=== PATIENT | male | born 1945 | race Caucasian/White ===

== ENCOUNTER 2020-08-11 01:03 | Outpatient (CLI) | payer OTHER, SELFPAY ==
--- NOTE | 2020-08-11 14:05 | DI.US_ITS ---
APPROVED REPORT EXAM: Comprehensive 2D, Doppler, and color-flow Echocardiogram Patient Location: Out-Patient [facility]st Project Manager: Pamela Hua RDCS ([place]) Indications: Ischemic heart disease, CABG Other Information Study Quality: Fair. Technically limited study due to body habitus. Conclusion Left Ventricle : The left ventricle is normal size. Left ventricular systolic function is mildly decr eased. There is normal left ventricular wall thickness. There is global hypokinesis of the left ventr icle. The left ventricular diastolic function is normal. LVEF is 45%. Right Ventricle : Right ventricle is not well visualized. Right ventricular systolic function could n ot be assessed. The RVSP is 19.1mmHg. Atria : Left atrium is mildly dilated. Right atrium is borderline dilated. Mitral Valve : The mitral valve is normal in structure. Mild mitral regurgitation. No evidence of micah ral valve stenosis. Great Vessels : The aortic root is normal in size. The ascending aorta is mildly dilated. Aortic arch is not well visualized. IVC is normal in size and collapses >50% with inspiration. There is no prior study available for comparison. Wall motion Left Ventricle The left ventricle is normal size. Left ventricular systolic function is mildly decreased. There is n ormal left ventricular wall thickness. There is global hypokinesis of the left ventricle. The left ve ntricular diastolic function is normal. There is no ventricular septal defect visualized. LVEF is 45% . Right Ventricle Right ventricle is not well visualized. Right ventricular systolic function could not be assessed. Th e RVSP is 19.1mmHg. Atria Left atrium is mildly dilated. Right atrium is borderline dilated. The interatrial septum is intact w ith no evidence for an atrial septal defect. Aortic Valve The aortic valve is normal in structure. Aortic valve is trileaflet. There is no aortic valvular sten osis. No aortic regurgitation is present. Mitral Valve The mitral valve is normal in structure. No evidence of mitral valve stenosis. Mild mitral regurgitat ion. Tricuspid Valve The tricuspid valve is normal in structure. There is no tricuspid valve stenosis. Trace tricuspid reg urgitation. Pulmonic Valve Pulmonic valve is not well visualized. There is no pulmonic valvular stenosis. Trace pulmonic regurgi tation. Great Vessels The aortic root is normal in size. The ascending aorta is mildly dilated. Aortic arch is not well vis ualized. IVC is normal in size and collapses >50% with inspiration. Pericardium There is no pericardial effusion. 2D Dimensions IVSD d PLAX 0.93 cm M: 0.6-1.2 LV Vol A2C d MOD 116.1 mL LVPW d PLAX 0.95 cm M: 0.6 - 1.2 LV Vol A4C d MOD 169.6 mL LVID d PLAX 5.34 cm M: 4.2 - 5.8 LA vol/ BSA A4C s A-L 49.0 mL/m2 LVDs 4.00 cm M: 2.5 - 4.0 LA Area A4C s MOD 33.48 cm2 Ao Root d 3.05 cm M: 3.1 - 3.7 LV EF A4C MOD 45.7 % Ao Asc Diam d 3.79 cm M: 2.6 - 3.4 LV EF A2C MOD 45.1 % LV EF Teichholz 47.7 % LV EF Biplane MOD 45.6 % LVEF (Villafana's) 45.60 % M: 52 - 72 SV 64.91 mL LV Volume 99.23 mL M: 62 - 150 SV Index 25.60 mL/m2 LV Volume Index 39.22 mL/m2 M: 34 - 74 LV Vol Biplane MOD 142.3 mL FS 24.15 % M-Mode TAPSE 1.66 cm (M/F) >1.7 LV Diastology MV E' medial 0.066 (>0.07 m/s) E/A Ratio 0.8 LV E/e MED 12.65 (<14) MV E Vmax 0.84 (0.4-1.3 m/s) MV E' lateral 0.105 (>0.1 m/s) MV A Vmax 1.05 (0.4-1.3 m/s) LV E/e LAT 7.95 (<14) MV E/A Ratio 0.79 MV E/E' medial 12.69 MV E/E' lateral 7.97 Aortic Valve LVOT Area 3.36 cm2 AoV Area Vmax 2.59 cm2 LVOT Vmax 1.00 m/s AoV Area/ BSA (Vmax) 1.02 cm2/m2 LVOT Mean Ivan. 0.63 m/s LAURITA Mean Ivan. 2.19 cm2 LVOT Peak Grad 4.0 mmHg LAURITA Mean Ivan. Index 0.87 cm2/m2 LVOT Mean Grad 1.9 mmHg LVOT VTI 0.238 m LVOT Diam s 2.05 cm AoV Vmax 1.30 m/s Velocity Ratio 0.76 AoV Mean Ivan. 0.97 m/s AoV Peak Grad 6.8 mmHg LVOT SV 80.05 mL AoV Mean Grad 4.1 mmHg AoV VTI 0.302 m AoV Area VTI 2.65 cm2 AoV Area/ BSA (VTI) 1.05 cm/m2 Mitral Valve MV DT 294 (160-240 msec) MR Vmax 4.99 m/s MV PHT 85 msec MR VTI 2.107 m MV Area PHT 2.58 cm2 MR Peak Grad 99.5 mmHg MV VTI 0.371 m MR Mean Grad 76.7 mmHg MV VTI Annulus 0.384 m MR PISA Radius 0.46 cm MV Area VTI 2.24 (4.0-6.0 cm2) MR EROA 0.09 cm2 MR Aliasing Velocity 0.35 m/s MR PISA 1.35 cm2 Pulmonary Valve PV Vmax 0.87 (0.5-1.5 m/s) RVOT Peak Gr. 1.63 mmHg PV Peak Grad 3.0 mmHg RVOT Mean Gr. 1.05 mmHg PV Mean Grad 2.0 mmHg RVOT VTI 0.175 m PV VTI 0.226 m RVOT Vmax 0.64 m/s Tricuspid Valve TR Peak Grad 16.0 mmHg TR Vmax 2.00 m/s RA Pressure 3.00 mmHg RVSP (TR) 19.1 mmHg
== END 2020-08-11 01:23 ==
PROVIDERS: PCP Family Medicine; Visit Provider Orthopaedic Surgery
DX: I25.9 Chronic ischemic heart disease, unspecified (principal); Z95.1 Presence of aortocoronary bypass graft; I34.0 Nonrheumatic mitral (valve) insufficiency; I77.810 Thoracic aortic ectasia
CPT/HCPCS: 93306